=== PATIENT | female | born 1945 | race Caucasian/White ===

== ENCOUNTER 2020-03-18 14:50 | Outpatient (CLI) | payer MEDICARE, SELFPAY ==
--- NOTE | 2020-03-18 15:05 | MR_ITS ---
WS: [id number] MRI LUMBAR SPINE NONCONTRAST TECHNIQUE: Sagittal T1, T2 and STIR imaging. Axial T1 and T2 imaging. CLINICAL INFORMATION: ROUTINE, BACK PAIN OR RADICULOPATHY COMPARISON: MRI November 03, 2013 FINDINGS: Advanced lumbar scoliosis convex left. Scoliotic curvature somewhat limits evaluation. No acute appea ring compression fractures. Disc desiccation worse at L3-L4 and L4-L5. T12-L1: Mild disc bulging with osteophytic ridging. Spinal canal is patent. Mild to moderate right an d no significant left foraminal narrowing. Mild to moderate facet arthropathy. L1-L2: Mild disc bulging and osteophytic ridging. Moderate facet arthropathy. Mild central canal sten osis. Mild right and no significant left foraminal narrowing. L2-L3: Mild disc bulging with osteophytic ridging. Narrowing of the right subarticular recess. Modera te facet arthropathy. Mild right and no significant left foraminal narrowing. L3-L4: Mild disc bulging with narrowing of the right subarticular recess. Mild right and no significa nt left foraminal narrowing. Moderate facet arthropathy. L4-L5: Disc osteophyte complex with endplate ridging. Moderate central canal stenosis with impingemen t subarticular recess bilaterally. Moderate facet arthropathy. Mild bilateral foraminal narrowing. L5-S1: Disc bulging eccentric to the left impingement on the left subarticular recess and traversing left S1 nerve root. Moderate left facet arthropathy. Moderate left and no significant right foraminal narrowing. Visualized pelvic bony structures: Normal. Paravertebral soft tissues: Normal. MR/MR lumbar spine wo con* [id number] IMPRESSION: 1. Advanced lumbar scoliosis convex left. Scoliotic curvature somewhat limits evaluation. 2. Moderate central canal stenosis L4-5 with impingement on the subarticular r ecess bilaterally and traversing L5 nerve roots. 3. Disc osteophyte complex L5-S1 impinges the traversing left S1 nerve root in the subarticular recess. Moderate left foraminal narrowing impinges the exitin g left L5 nerve root with moderate left facet arthropathy. 4. Mild narrowing of the right L3-L4 subarticular recess with mild right ale inal narrowing at this level and mild right L3-4 foraminal narrowing. 5. Overall findings are not significantly changed since 2013.
== END 2020-03-18 14:51 | disposition home or self-care (01) ==
PROVIDERS: Family Provider Family Medicine; PCP Family Medicine; Visit Provider Family Medicine
DX: M54.10 Radiculopathy, site unspecified (principal); M54.9 Dorsalgia, unspecified; M41.86 Other forms of scoliosis, lumbar region; M48.061 Spinal stenosis, lumbar region without neurogenic claudication; M25.78 Osteophyte, vertebrae; M47.817 Spondylosis without myelopathy or radiculopathy, lumbosacral region
CPT/HCPCS: 72148

== ENCOUNTER 2020-07-15 09:21 | Outpatient (CLI) | payer MEDICARE, SELFPAY ==
--- NOTE | 2020-07-15 09:28 | MM_ITS ---
WS: [id number] SCREENING DIGITAL MAMMOGRAM WITH CAD HISTORY: SCREENING COMPARISON: 05/23/2019 and 07/12/2017 Bilateral CC and MLO views submitted. Computer aided detection analyzed. Breast composition: There are scattered areas of fibroglandular density. No suspicious masses, microc alcifications or architectural distortion. Benign calcification anterior LEFT breast. MM/[place] [id number] IMPRESSION: BI-RADS: 2-Benign FOLLOW UP: 1 Year Follow-up
== END 2020-07-15 09:22 | disposition home or self-care (01) ==
LOC: RADSHAW 09:25
PROVIDERS: PCP Family Medicine; Visit Provider Family Medicine
DX: Z12.31 Encounter for screening mammogram for malignant neoplasm of breast (principal)
CPT/HCPCS: 77067

== ENCOUNTER 2021-04-04 09:35 | Outpatient (CLI) | payer MEDICARE, SELFPAY ==
--- NOTE | 2021-04-04 09:52 | XR_ITS ---
WS: [id number] Cervical spine, 3 views, 04/04/2021 day Clinical Data: FALL AT HOME Comparison: None. Findings: No compression fractures are seen. There is disc space narrowing at C3-C4, C4-C5 and C5-C6. There is osteophytic spurring from C3 through C5. There is no prevertebral soft tissue swelling. The odontoid is unremarkable. The soft tissues of the neck and the lung apices are normal. XR/XR cervical spine 3V* [id number] Impression: 1. Degenerative disc narrowing at C3-C4, C4-C5 and C5-C6. 2. 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
== END 2021-04-04 09:36 | disposition home or self-care (01) ==
PROVIDERS: PCP Family Medicine; Visit Provider Family Medicine
DX: M50.31 Other cervical disc degeneration, high cervical region (principal)
CPT/HCPCS: 72040

== ENCOUNTER 2021-09-08 08:18 | Outpatient (CLI) | payer MEDICARE, SELFPAY ==
--- NOTE | 2021-09-08 08:22 | MM_ITS ---
WS: [id number] SCREENING DIGITAL MAMMOGRAM WITH CAD HISTORY: SCREENING COMPARISON: 07/15/2020, 05/23/2019 and 07/12/2017 Bilateral CC and MLO views submitted. Computer aided detection analyzed. Breast composition: There are scattered areas of fibroglandular density. No suspicious masses, microc alcifications or architectural distortion. There is benign calcification 12:00 LEFT breast. MM/[id number] IMPRESSION: BI-RADS: 2-Benign FOLLOW UP: 1 Year Follow-up
== END 2021-09-08 08:19 | disposition home or self-care (01) ==
LOC: RADSHAW 08:19
PROVIDERS: PCP Family Medicine; Visit Provider Family Medicine
DX: Z12.31 Encounter for screening mammogram for malignant neoplasm of breast (principal)
CPT/HCPCS: 77067

== ENCOUNTER 2021-12-03 09:26 | Outpatient (CLI) | payer MEDICARE, SELFPAY ==
--- NOTE | 2021-12-03 09:52 | XR_ITS ---
WS: [id number] DEXA (DUAL ENERGY X-RAY ABSORPTIOMETRY) Bone mineral density was performed using a Cubby machine. HISTORY: ASYMPTOMATIC MENOPAUSAL STATE COMPARISON: None available. Lumbar spine BMD (L1-L4): 1.307 g/cm2 T score: 1.1 Z score: 2.6 Total hip BMD: Left: 0.799 g/cm2. T score: -1.7 Z score: -0.1 Right: 0.812 g/cm2. T score: -1.6 Z score: 0.0 10 year probability of a major osteoporotic fracture is 14%. Severe LEFT curvature lumbar spine. Increased sclerosis along the concave curvature the lumbar spine falsely elevating the bone mineral density. Bone mineral density within the hips is more accurate dep iction. XR/XR DEXA axial skeleton* [id number] IMPRESSION: OSTEOPENIA based upon the WHO classification for females.
== END 2021-12-03 09:27 | disposition home or self-care (01) ==
PROVIDERS: PCP Family Medicine; Visit Provider Family Medicine
DX: Z78.0 Asymptomatic menopausal state (principal)
CPT/HCPCS: 77080

== ENCOUNTER 2022-03-17 08:36 | Outpatient (CLI) | payer MEDICARE, SELFPAY ==
--- NOTE | 2022-03-17 09:02 | XR_ITS ---
WS: [email or web address] Exam: XR chest 2V* [id number] Date/Time of Exam: 03/17/2022 9:03 AM Reason For Exam: COUGH Comparison 10/11/2016. The lungs are fully inflated and clear. Normal cardiomediastinal silhouette. Angular thoracolumbar sc oliosis. No pleural effusions. XR/XR chest 2V* [id number] IMPRESSION: 1. No acute cardiopulmonary finding. Marked thoracolumbar scoliosis.
== END 2022-03-17 08:37 | disposition home or self-care (01) ==
PROVIDERS: PCP Family Medicine; Visit Provider Family Medicine
DX: R05.9 Cough, unspecified (principal)
CPT/HCPCS: 71046

== ENCOUNTER 2022-10-20 08:43 | Outpatient (CLI) | payer MEDICARE, SELFPAY ==
--- NOTE | 2022-10-20 08:49 | MM_ITS ---
WS: [email or web address] VIEWS: MLO and CC views both breasts. 3D digital tomosynthesis is also included in this exam. Comparison made with prior exam of 09/05/2014, 02/19/2016, 07/12/2017, 05/23/2019, 07/15/2020, 09/08/20 21.. Findings: There was no sign of mass, architectural distortion or suspicious calcification in either breast. Sc attered fibroglandular densities MM/[place] [id number] Impression: BI-RADS: 2-Benign FOLLOW-UP: 1 Year Follow-up This mammogram was also analyzed by the Computer Aided Detection System R2 Imag e Quality Control Assessor.
== END 2022-10-20 08:44 | disposition home or self-care (01) ==
LOC: RAD 08:47
PROVIDERS: PCP Family Medicine; Visit Provider Family Medicine
DX: Z12.31 Encounter for screening mammogram for malignant neoplasm of breast (principal)
CPT/HCPCS: 77063; 77067

== ENCOUNTER 2023-04-08 11:46 | Outpatient (CLI) | payer MEDICARE, SELFPAY ==
--- NOTE | 2023-04-08 11:58 | XR_ITS ---
WS: [email or web address] XR scoliosis survey 2-3V [id number] REASON FOR EXAM: SCOLIOSIS FINDINGS: Severe thoracolumbar scoliosis. Severe degenerative spondylosis of the lumbar spine with severe disc space narrowing at L1-S1. Lumbar scoliosis convex left 55 degrees. Moderate degenerative spondylosis in the in the mid and lower thoracic spine. Thoracic scoliosis convex right. 35 degrees. XR/XR scoliosis survey 2-382 IMPRESSION: Severe thoracolumbar scoliosis as above.
== END 2023-04-08 11:47 | disposition home or self-care (01) ==
PROVIDERS: PCP Family Medicine; Visit Provider Family Medicine
DX: M41.9 Scoliosis, unspecified (principal)
CPT/HCPCS: 72082

== ENCOUNTER 2023-06-14 10:39 | Outpatient (CLI) | payer MEDICARE, SELFPAY ==
--- NOTE | 2023-06-14 10:53 | MR_ITS ---
WS: [id number] MRI LUMBAR SPINE NONCONTRAST HISTORY: SCOLIOSIS/SPONDYLOSIS W/O MYELOPATH,THORACIC LUMBAR REGION COMPARISON: 03/18/2020 TECHNIQUE: Sagittal and axial multisequence imaging is submitted. Thoracolumbar scoliosis. Advanced LEFT curvature lumbar spine with asymmetric disc space narrowing. V agusto similar to the prior exam. No marrow edema or fracture. Disc spaces are desiccated throughout. Most significant at L3-4 and L4-5. Conus terminates normally at L1-2 disc level. T12-L1: Marked deformity thecal sac due to the scoliosis. Severe RIGHT foraminal stenosis L1-L2: Diffuse disc bulging with osteophytic ridging. Moderate facet arthritis. Mild central with mod erate RIGHT foraminal stenosis. No LEFT foraminal stenosis. L2-L3: Deformity of the thecal sac due to the scoliosis. Diffuse annular disc bulging with facet arth ritis. Mild central with moderate RIGHT foraminal stenosis. Similar to the prior study. L3-L4: Mild progression of central and bilateral subarticular recess stenosis. Thecal sac is being de formed. Nerve roots extend into the RIGHT foramen and subarticular recess. Moderate central, bilatera l subarticular recess and RIGHT foraminal stenosis. L4-L5: Marked annular disc bulging, osteophytic ridging and facet arthritis. Near effacement of the C SF. There is an additional central disc protrusion. Progression of stenosis and disc disease since th e prior study. Severe central, bilateral subarticular recess and foraminal stenosis. L5-S1: Marked annular disc bulging with a LEFT foraminal disc protrusion. Mild osteophytic ridging wi th severe ligamentum flavum and facet arthritis. Moderate to severe central with severe LEFT subartic ular recess and foraminal stenosis. Only mild stenosis on the RIGHT. Stenoses have progressed since 2 020. Paravertebral soft tissues are negative for IMPRESSION: 1. Marked thoracal lumbar scoliosis. LEFT curvature lumbar spine. 2. Significant progression of degenerative changes and stenoses within L4-5 and L5-S1. Mild progressi on at L3-4. 3. Moderate to severe central with severe LEFT subarticular recess and foraminal stenosis at L5-S1. L EFT foraminal disc protrusion contributes to the stenosis and encroachment upon the LEFT L5 and S1 ne rve roots. 4. Severe central, bilateral subarticular recess and foraminal stenosis at L4-5. 5. Moderate central, bilateral subarticular recess and RIGHT foraminal stenosis at L3-4. Nerve roots in the thecal sac encroach into the RIGHT foramen and RIGHT subarticular recess due to the scoliosis. 6. T12-L1: Severe RIGHT foraminal stenosis. 7. Moderate RIGHT and mild LEFT foraminal stenosis at L1-2. 8. Mild central with moderate RIGHT foraminal stenosis at L2-3.
== END 2023-06-14 10:40 | disposition home or self-care (01) ==
PROVIDERS: PCP Family Medicine; Visit Provider Registered Nurse
DX: M41.85 Other forms of scoliosis, thoracolumbar region (principal); M47.815 Spondylosis without myelopathy or radiculopathy, thoracolumbar region; M48.05 Spinal stenosis, thoracolumbar region; M48.07 Spinal stenosis, lumbosacral region
CPT/HCPCS: 72148

== ENCOUNTER 2023-07-08 16:36 | Outpatient (CLI) | payer MEDICARE, SELFPAY ==
--- NOTE | 2023-07-08 | MRR_ITS ---
PROCEDURE INFORMATION: Exam: MR Cervical Spine Without Contrast Exam date and time: 07/08/2023 5:05 PM Age: 78 years old Clinical indication: Pain; Cervicalgia; Additional info: Hyperreflexia TECHNIQUE: Imaging protocol: Magnetic resonance imaging of the cervical spine without contrast. COMPARISON: CR XR scoliosis survey 2-3V [id number] 04/08/2023 12:04 PM FINDINGS: Bones/joints: No acute fracture. Normal alignment. Moderate multilevel degenerative disc disease throughout the cervical spine. No significant disc bulge or herniation. No severe spinal canal stenosis. There is mild multilevel neural foraminal stenosis within the mid and lower cervical spine, no severe neural foraminal stenosis. Spinal cord: Normal signal. No cord compression. Vasculature: Expected flow voids in the vertebral arteries. Soft tissues: Unremarkable MR/MR cervical spin wo con* [id number] IMPRESSION: Moderate multilevel degenerative disc disease throughout the cervical spine. No significant disc bulge/herniation, spinal canal, or neural foraminal stenosis.
== END 2023-07-08 16:37 | disposition home or self-care (01) ==
PROVIDERS: PCP Family Medicine; Visit Provider Registered Nurse
DX: R29.2 Abnormal reflex (principal); M50.30 Other cervical disc degeneration, unspecified cervical region
CPT/HCPCS: 72141; 72156

== ENCOUNTER 2023-07-09 13:25 | Outpatient (CLI) | payer MEDICARE, SELFPAY ==
--- NOTE | 2023-07-09 | MR_ITS ---
WS: [email or web address] MRI THORACIC SPINE WITHOUT CONTRAST TECHNIQUE: Sagittal T1, T2 and STIR imaging. Axial T2 imaging. Noncontrast imaging obtained. CLINICAL INFORMATION: back pain COMPARISON: None. FINDINGS: Marked thoracolumbar scoliosis. Moderate thoracic kyphosis. No acute compression. No high-grade centr al canal stenosis. Cord signal is normal. Mild disc space narrowing in the lower thoracic spine. Mode rate facet arthropathy lower thoracic spine. Shallow central protrusion in the upper thoracic spine a t T2-3 with slight contact of the thoracic cord and mild central canal stenosis. Tiny shallow central protrusions in the midthoracic spine. Normal caliber thoracic aorta. Small esophageal hiatal hernia. Moderate LEFT bony foraminal narrowing T11-T12 and bilateral T12-L1. IMPRESSION: 1. Marked rectal lumbar scoliosis with moderate thoracic kyphosis. 2. No acute compression fractures. 3. No high-grade central canal stenosis. 4. Shallow central protrusion in the upper thoracic spine at T2-3 with slight contact of the thoraci c cord and mild central canal stenosis.
== END 2023-07-09 13:26 | disposition home or self-care (01) ==
LOC: RAD 13:27
PROVIDERS: PCP Family Medicine; Visit Provider Registered Nurse
DX: M40.204 Unspecified kyphosis, thoracic region (principal); M48.04 Spinal stenosis, thoracic region; M51.24 Other intervertebral disc displacement, thoracic region
CPT/HCPCS: 72146

== ENCOUNTER → 2023-09-08 11:29 | Outpatient (BNVA) | payer MEDICARE, SELFPAY | PROVIDERS: PCP Family Medicine; Visit Provider Internal Medicine Cardiovascular Disease | DX: R07.9 Chest pain, unspecified (principal); R94.31 Abnormal electrocardiogram [ECG] [EKG] | CPT/HCPCS: 93005; 99203 ==

== ENCOUNTER 2023-09-15 06:03 | Outpatient (CLI) | payer MEDICARE, SELFPAY ==
[2023-09-15] VITALS (23 sets, daily range): BP systolic 107–162; BP diastolic 74–95; PULSE 52–71; RESP 13–21; O2SAT 91–97; BMI 28.3
--- NOTE | 2023-09-15 06:00 | XACV_ITS ---
Gender: Female : 1945 Any Known Allergies: Other Exam Priority: Routine Procedure(s): Procedure Description: Diagnostic procedure Procedure Description: Coronary Angiography Procedure Description: Pressure Wire Yair LOUIE; Diagnostic Cath Status: Elective Diagnostic Findings * Patient with previous angiography several years ago without need for intervention. Over the last 2 months recurrent chest pain. Using multiple nitroglycerin. Procedure was accomplished from the right radial artery. * Coronary angiography reveals left coronary artery dominance. The left main coronary artery is normal and bifurcates into the LAD and circumflex. The LAD contains mild diffuse plaquing with a 30 to 40% proximal to mid stenosis. The circumflex is the dominant artery and gives off multiple relatively small marginal branches and a posterior descending artery. In the proximal to mid circumflex there is a 40 to 50% stenosis. The distal vessel contains moderate to diffuse generalized plaquing. There is a small ramus intermedius artery which is severely diffusely diseased in the proximal to midportion. The right coronary artery is a small nondominant vessel and has mild to moderate diffuse disease.. PCI Status: Elective Interventional Findings * And IFR of the proximal to mid circumflex lesion is 0.99. Conclusions 1. Diffuse nonobstructive coronary artery disease. Recommendations * Consider adding a long-acting nitrate. Interventional RX Recommendation: medical therapy and/or counseling Diagnostic RX Recommendation: medical therapy and/or counseling Anticoagulation: Heparin Pressures Phase:Rest AO : 126 / 66 ( 94 ) @ 7:25:00 AM 115 / 73 ( 90 ) @ 7:27:00 AM 131 / 60 ( 93 ) @ 7:32:00 AM 144 / 74 ( 105 ) @ 7:59:00 AM Clinical Evaluation EBL: 5mL-10mL Procedural Details Pre-Procedure Time Out. Identified patient by full name and date of as verbalized by the patient/guarantor. Does the consent match the physician's order: Yes. Accurate & Complete Informed Consent: Yes. Inpatient/Outpatient History & Physical on Chart: Yes. If H&P is completed, is and addenduem needed: No; If yes, is the addendum complete: N/A. Visualize and Verify Site with Patient/Guarantor: N/A. Relevant Radiology Images available: Yes. Pre-op teaching completed and patient verbalized understanding. The risks, benefits, and alternatives of sedation and/or procedure were discussed by physician. The patient agrees to continue. Procedure started. [facility] Clinical Fraility Score: 3: Managing Well. Water/Wastewater Project Manager Indications: Worsening Angina. Chest Pain Symptom Assessment: Atypical Angina. Correct patient, site and procedure confirmed by cath team. Current diagnosis: Chest Pain. PERRLA. Strong, equal hand imaging nurse bilaterally. Lungs clear x 5 lobes. IV Site on Arrival: 20 gauge in the left anticubital. Physician arrived. IV Fluids: 0.9% NaCl at KVO. 0 mL infused prior to laborer fryer farm. Pre Procedural Pulses: right dorsalis pedis was 3+. Pre Procedural Pulses: left dorsalis pedis was Doppled. Pre Procedural Pulses: bilateral posterior tibial was Doppled. Pre Procedural Pulses: bilateral radial was 3+. Oxygen started at 2liters/min via nasal canula. right groin was prepped with chloroprep then draped in the usual sterile fashion. right radial was prepped with chloroprep then draped in the usual sterile fashion. Baseline sample Acquired. HR: 65 BPM. Physician scrubbed in. Immediate Pre-Procedure Time Out. Correct Patient: Yes; Correct Procedure: Yes; Correct Site: Yes; Correct Patient Position: Yes; Correct Supplies: Yes; Dried Flammable Prep: Yes; Blood Products Available: N/A;. Lidocaine 1% infiltrated to the right radial. Arterial access obtained. A 5 tanzanian TIG catheter in over wire. Multiple views taken of left coronary artery. Catheter removed over the exchange wire. A 6 tanzanian TIG catheter in over wire. Catheter out. A 6 tanzanian JL4 catheter in over wire. Multiple views taken of left coronary artery. Catheter removed over the exchange wire. A 6 tanzanian JR4 catheter in over wire. Catheter removed over the exchange wire. A 5 tanzanian TIG catheter in over wire. Multiple views taken of right coronary artery. Physician review of cine films. Catheter removed over the exchange wire. 6 tanzanian XB 3 guide catheter was inserted over the wire. IFR guidewire was advanced through the guide catheter to lesion in the prox Circ. IFR Results: 0.99. Wire out. Guide catheter out. A TR Band was successful obtaining hemostatsis at the Right Radial artery insertion site. Post Procedure: Pulses reassessed and unchanged. PERRLA. Strong, equal hand imaging nurse bilaterally. No VTE prophylaxis required. Medication's Wasted: Heparin = 1000 unit. Medication's Wasted: Nitro = 49.8 mcg. Total IV fluids: 70 mL. Complications: None. Estimated blood loss: 5mL-10mL. Responsiveness - Normal response to verbal stimuli; alert and oriented, PERRLA. Airway - Unaffected, no intervention required; spontaneous ventilation. Circulation: W/N/L, pulses unchanged. Nausea/Vomiting: No. Procedure completed. Vital chart was stopped. Patient transferred by stretcher to CPRU. Access Site Site: Right Radial artery Sheath Size: 6 Fr Hemostasis Method: TR Band Hemostasis Success: Successful Procedure Medications Start: 7:14 AM Stop: 7:14 AM Medication: Versed Amount: 1 mg Route: I.V. Start: 7:14 AM Stop: 7:14 AM Medication: Fentanyl Amount: 50 mcg Route: I.V. Start: 7:23 AM Stop: 7:23 AM Medication: Nitrogylcerin Amount: 200 mcg Route: I.A. Start: 7:25 AM Stop: 7:25 AM Medication: Heparin Amount: 5000 units Route: I.V. Start: 7:26 AM Stop: 7:26 AM Medication: Fentanyl Amount: 25 mcg Route: I.V. Start: 7:40 AM Stop: 7:40 AM Medication: Versed Amount: 1 mg Route: I.V. Start: 7:56 AM Stop: 7:56 AM Medication: Fentanyl Amount: 25 mcg Route: I.V. I, the attending physician, have reviewed and verified all procedure medications. Yes, all medications given per verbal order History/Risk Factors Hypertension: No Dyslipidemia: No Peripheral Arterial Disease (PAD): No Myocardial Infarction (NV): No Obesity: No Renal Disease: No Tobacco Use: Never Prior Interventions PCI: No CABG: No Valve Surgery: No Report Signatures Finalized by Dr. Oliver Mazariegos MD on 09/15/2023 08:31 AM
[2023-09-15] MEDS: diphenhydrAMINE 50 mg Capsule PO (06:20)
[2023-09-15] MEDS: aspirin 325 mg Tablet PO (06:20)
[2023-09-15 06:44] LABS: Basophils # 0.1 10^3/uL (0.0-0.1); Basophils % 1.3 %; Eosinophils # 0.5 10^3/uL (0.0-0.8); Eosinophils % 6.1 %; Hematocrit 39.1 % (36-47); Lymphocytes # 1.2 10^3/uL (0.8-4.8); Lymphocytes % 14.5 %; Mean Corpuscular Hemoglobin 29.7 pg (27-33); Mean Corpuscular Volume 92.9 fl (85-98); Mean Platelet Volume 10.5 fL (7.4-10.4); Monocytes # 0.8 10^3/uL (0.2-0.9); Monocytes % 9.1 %; Neutrophils # 5.83 10^3/uL (1.8-7.7); Neutrophils % 68.6 %; Nucleated Red Blood Cells % 0 %; Platelet Count 288 10^3/cmm (157-399); Red Blood Count 4.21 10^6/uL (3.85-5.65); White Blood Count 8.49 10^3/uL (3.29-11.43)
--- NOTE | 2023-09-15 06:54 | P.HPUD_ITS ---
Surgery/Procedure H&P Update DATE OF PROCEDURE: September 15, 2023 DATE H&P PERFORMED: 09/08/23 H&P UPDATE INFORMATION: I have reviewed H&P completed within last 30 days, I have examined patient prior to procedure, No changes to prior documentation and H&P is in [facility] [place] on date indicated CHANGES TO PREVIOUS DOCUMENTATION: none PRIMARY INDICATION FOR PROCEDURE: chest pain PLANNED PROCEDURE: Operation Date: 09/15/23 07:00 Proposed Procedures p Left heart cath [id number],R94.39(Not Applicable) - Oliver Mazariegos MD
[2023-09-15 06:58] LABS: Anion Gap 15.9 (5-19); Blood Urea Nitrogen 21 mg/dL (8-23); Calcium 9.8 mg/dL (8.5-10.5); Carbon Dioxide 26 mmol/L (22-29); Chloride 103 mmol/L (98-107); Creatinine Clr Calc Pharmacy 49.9717; Glucose 86 mg/dL (65-115); Osmolality Calculated 294 mOsm/kg (285-295); Potassium 3.9 mmol/L (3.5-5.1); Sodium 141 mmol/L (136-145)
--- NOTE | 2023-09-15 10:10 | PC.NURSE ---
TR Band Bleeding noted from TR band small hematoma noted below band. 4ml air placed back into band, hemostasis achieved. Small hematoma expressed.
--- NOTE | 2023-09-15 10:16 | PM.DCS ---
Discharge Providers Date of Admission: September 15, 2023 Date of Discharge: September 15, 2023 Attending Provider at Admission: Yair Attending Provider at Discharge: Oliver Mazariegos MD Primary Care Provider: Yamel Swift MD Diagnoses at Discharge Discharge Diagnosis (1) Chest pain: Status: Acute (2) CAD (coronary artery disease): Status: Acute Reason for Visit Reason for Visit: r94.39 Brief History: John fernandez 78 has a history of nonobstructive coronary artery disease with 2 previous angiograms in 2014 and 2016. She presented to the office a week ago with 2 months of chest pain. Intermittent relief with nitroglycerin. She is concerned about her previous 30% lesion which may have advanced. She was recommended for angiography. Hospital Course Hospital Course She has a left dominant system. She has a severely diffusely diseased small ramus intermedius artery. The circumflex has developed a 50% stenosis in the proximal portion. This underwent IFR evaluation. The IFR reading was 0.99. She has mild to moderate diffuse disease in all coronary arteries. There is a 30 to 40% mid left anterior descending lesion. The right coronary artery is a diminutive nondominant artery. The distal circumflex has moderate diffuse disease. The procedure was done from the right radial artery. There were no complications. At the time of discharge there is no bleeding, hematoma or other vascular anomalies. Imdur was added to her medication regimen in case she is having spasm. Physical Exam Narrative: GENERAL: In general she looks and feels well HEENT: Exam within normal limits. NECK: Supple without jugular vein distention. The carotid upstroke is normal without bruits. BACK: Exam normal. LUNGS: Clear. HEART: Regular rate and rhythm. ABDOMEN: Benign without organomegaly or tenderness. EXTREMITIES: No edema. At the time of discharge the right radial artery area is flat, dry without hematoma or bleeding. There is a good pulse. NEUROLOGIC: Exam normal. SKIN: Unremarkable. Discharge Data Studies Completed and Pending Completed Studies During Hospitalization Category Date Time Status [employer] I ASSEMBLER request for service Routine Exams 09/15/23 06:00 Completed Laboratory Results WBC 8.49 10^3/uL (3.29-11.43) 09/15/23 06:27 RBC 4.21 10^6/uL (3.85-5.65) 09/15/23 06:27 Hgb 12.50 g/dL (11.27-16.99) 09/15/23 06:27 Hct 39.1 % (36-47) 09/15/23 06:27 MCV 92.9 fl (85-98) 09/15/23 06:27 MCH 29.7 pg (27-33) 09/15/23 06:27 MCHC 32.0 g/dL (30-55) 09/15/23 06:27 RDW 13.0 % (12.1-15.1) 09/15/23 06:27 Plt Count 288 10^3/cmm (157-399) 09/15/23 06:27 MPV 10.5 fL (7.4-10.4) H 09/15/23 06:27 Neut % (Auto) 68.6 % 09/15/23 06:27 Lymph % (Auto) 14.5 % 09/15/23 06:27 Travis % (Auto) 9.1 % 09/15/23 06:27 Eos % (Auto) 6.1 % 09/15/23 06:27 Baso % (Auto) 1.3 % 09/15/23 06:27 Neut # (Auto) 5.83 10^3/uL (1.8-7.7) 09/15/23 06:27 Lymph # (Auto) 1.2 10^3/uL (0.8-4.8) 09/15/23 06:27 Travis # (Auto) 0.8 10^3/uL (0.2-0.9) 09/15/23 06:27 Eos # (Auto) 0.5 10^3/uL (0.0-0.8) 09/15/23 06:27 Baso # (Auto) 0.1 10^3/uL (0.0-0.1) 09/15/23 06:27 Nucleated RBC % (auto) 0 % 09/15/23 06:27 Nucleated RBCs # 0.0 /100WBC 09/15/23 06:27 Sodium 141 mmol/L (136-145) 09/15/23 06:27 Potassium 3.9 mmol/L (3.5-5.1) 09/15/23 06:27 Chloride 103 mmol/L (98-107) 09/15/23 06:27 Carbon Dioxide 26 mmol/L (22-29) 09/15/23 06:27 Anion Gap 15.9 (5-19) 09/15/23 06:27 BUN 21 mg/dL (8-23) 09/15/23 06:27 Creatinine 0.9 mg/dL (0.5-0.9) 09/15/23 06:27 GFR Calculation Not Reportable 09/15/23 06:27 Glucose 86 mg/dL (65-115) 09/15/23 06:27 Calculated Osmolality 294 mOsm/kg (285-295) 09/15/23 06:27 Calcium 9.8 mg/dL (8.5-10.5) 09/15/23 06:27 Procedures Performed Coronary angiography. IFR of the circumflex 0.99. Vitals Last Vital Signs Pulse 58 L 09/15/23 10:00 Resp 16 09/15/23 10:00 BP 124/78 09/15/23 10:00 Pulse Ox 93 09/15/23 10:00 O2 Del Method Room Air 09/15/23 09:45 Discharge Plan Discharge Patient Disposition: Home Prescriptions: New isosorbide mononitrate 30 mg tablet extended release 24 hr 30 mg PO DAILY Qty: 30 6RF Continued citalopram 20 mg tablet 20 mg PO DAILY levothyroxine 100 mcg capsule 100 mcg PO DAILY meloxicam 15 mg tablet 15 mg PO DAILY amlodipine [Norvasc] 5 mg tablet 5 mg PO BID budesonide-formoterol [Symbicort] 80-4.5 mcg/actuation HFA aerosol inhaler 2 puff inhalation BID albuterol 90 mcg/actuation aerosol 90 mcg inhalation pantoprazole 40 mg tablet,delayed release (DR/EC) 40 mg PO BID Discharge Orders: Discharge Order (Routine); Ordered 09/15/23 Ordered By: Oliver Mazariegos Referrals: Amy Campbell FNP [Nurse Practitioner] - 7-10 days (Check right radial artery and chemistry panel) Diet: Cardiac Activity: Increase activity as tolerated and Limit activity as instructed Activity Restrictions/Additional Instructions: No lifting over 5 pounds with the right arm for 2 days Discharge Attestations Time Spent in Discharge Care*: greater than 30 min Quality Metrics Clinical Quality Measures [ No reported AMI, CVA or VTE this stay] Coding Level of Care Code 42578 Total time (in minutes) for Discharge: 35 Diagnoses Chest pain R07.9 CAD (coronary artery disease) I25.10
== END 2023-09-15 06:04 | disposition home or self-care (01) ==
PROVIDERS: PCP Family Medicine; Visit Provider Internal Medicine Cardiovascular Disease
DX: I25.10 Atherosclerotic heart disease of native coronary artery without angina pectoris (principal); R07.9 Chest pain, unspecified
CPT/HCPCS: 36415; 80048; 85025; 93571; 96361; 96365; 99152; 99153; C1769; C1887; C1894; J1644; J2250; J3010; J3490; J7030; Q0163; Q9967

== ENCOUNTER → 2023-09-22 08:04 | Outpatient (BNVA) | payer MEDICARE, SELFPAY | PROVIDERS: PCP Family Medicine; Visit Provider Nurse Practitioner Family | DX: I25.118 Atherosclerotic heart disease of native coronary artery with other forms of angina pectoris (principal) | CPT/HCPCS: 36415; 80048; 99214 ==

== ENCOUNTER → 2023-11-12 09:38 | Outpatient (BNVA) | payer MEDICARE, SELFPAY | PROVIDERS: PCP Family Medicine; Visit Provider Internal Medicine Cardiovascular Disease | DX: I25.118 Atherosclerotic heart disease of native coronary artery with other forms of angina pectoris (principal) | CPT/HCPCS: 99213 ==

== ENCOUNTER 2024-03-23 18:48 | Emergency (ER) | payer MEDICARE, SELFPAY ==
[2024-03-23 18:52] VITALS: BP 132/80; PULSE 73; RESP 16; TEMP 36.9; O2SAT 95; BMI 29.2
--- NOTE | 2024-03-23 18:56 | XRR_ITS ---
PROCEDURE INFORMATION: Exam: XR Right Hip Exam date and time: 03/23/2024 7:13 PM Age: 79 years old Clinical indication: Injury or trauma; Fall; Other: Pain; Additional info: Fall pain TECHNIQUE: Imaging protocol: Radiologic exam of the right hip. Views: 1 view hip with pelvis when performed. COMPARISON: MR lumbar spine wo con* [id number] 06/14/2023 11:45 AM FINDINGS: Bones/joints: Slight degenerative acetabular spurring. No acute fracture. No dislocation. Soft tissues: A few nonspecific heterotopic ossifications noted near the greater trochanter. XR/XR hip RT 2-3V wo/w pel* [id number] IMPRESSION: No hip fracture or dislocation. Further evaluation with MR may be considered if there is persistent suspicion for occult fracture or other significant abnormality.
[2024-03-23] MEDS: cyclobenzaprine 10 mg Tablet 5 MG PO (19:41)
[2024-03-23] MEDS: ondansetron 4 MG Tablet PO (19:41)
--- NOTE | 2024-03-23 19:41 | ED_ITS ---
HPI - Extremity Problem General: Chief complaint: Extremity Problem,Nontraumatic Stated complaint: afraid broke right hip cant put weight Time Seen by Provider: 03/23/24 19:14 History of Present Illness: 79-year-old female with a history of hyp ertension who presents emergency room w ith right-sided leg pain. She describes pain that starts in her back and goes all the way down the back of her leg. She says she has a hard time walking and moving because of the pain. No saddle numbness, no urinary retention or incontinence, no focal motor deficit, no sensory deficit. no recent fever. no cough. no shortness of breath. no chest pain. no abdominal pain. no nausea or vomiting. no dysuria. no altered mental status. no edema. Review of Systems Narrative: Constitutional symptoms: Negative except as documented in HPI. Skin symptoms: Negative except as documented in HPI. Eye symptoms: Negative except as documented in HPI. ENMT symptoms: Negative except as documented in HPI. Respiratory symptoms: Negative except as documented in HPI. Cardiovascular symptoms: Negative except as documented in HPI. Gastrointestinal symptoms: Negative except as documented in HPI. Genitourinary symptoms: Negative except as documented in HPI. Musculoskeletal symptoms: Negative except as documented in HPI. Neurologic symptoms: Negative except as documented in HPI. Psychiatric symptoms: Negative except as documented in HPI. Endocrine symptoms: Negative except as documented in HPI. [facility] ED PFSH: Medical History CAD (coronary artery disease) Stable angina Chest pain Family History Other Cancer Social History Smoking and tobacco/nicotine status: never used tobacco/nicotine Physical Exam Narrative: EXAM NARRATIVE: General: Alert, no acute distress. Head: Normocephalic Neck: Trachea midline Eye: Extraocular movements are intact. Ears, nose, mouth and throat: Oral mucosa moist Respiratory: Respirations are non-labored Musculoskeletal: Normal ROM Back: no step off, no focal tenderness Neurological: Alert and oriented to person, place, time, and situation, No focal neurological deficit observed. Psychiatric: Cooperative, appropriate mood & affect. Course Vital Signs: Vital signs: Vital Signs Temperature 98.5 F 03/23/24 18:52 Pulse Rate 73 03/23/24 18:52 Respiratory Rate 16 03/23/24 18:52 Blood Pressure 132/80 03/23/24 18:52 Pulse Oximetry 95 03/23/24 18:52 MDM - Extremity (Nontraumatic) Medical Decision Making X-ray of the right hip and pelvis: No fractures. No dislocations. Perhaps some arthritic changes. This was reviewed and interpreted by myself the emergency room physician. Assessment and plan: Sciatica -[place] with Zofran. Patient states she has an allergy to [place] but this is nausea so Zofran given with. ? 5 mg Flexeril. 10 mg IM Decadron. - Discharged home - Discussed plan with patient. Answered any questions. - Evaluation and treatment of this problem were appropriate in the emergency setting. XR interpretation done by ED provider, pending radiology final review Discharge Plan Discharge Patient Disposition: Home Clinical Impression: Sciatica Qualifiers: Laterality: right Qualified Code(s): M54.31 - Sciatica, right side Condition: Stable Prescriptions: New cyclobenzaprine 10 mg tablet 10 mg PO BEDTIME Qty: 20 0RF hydrocodone-acetaminophen 5-325 mg tablet 1 tab PO Q6H PRN (Reason: pain) Qty: 20 0RF prednisone 20 mg tablet 60 mg PO DAILY Qty: 20 0RF Rx Instructions: 3 tabs (60 mg) x 3 days. 2 tabs (40 mg) x 3 days. 1 tab (20 mg) x 3 days. 1/2 tab (10 mg) x 4 days ondansetron 8 mg tablet,disintegrating 8 mg PO .q6 PRN (Reason: nausea and vomiting) Qty: 14 0RF diclofenac sodium 50 mg tablet,delayed release (DR/EC) 50 mg PO Q12H Qty: 20 0RF Miralax 17 gram/dose powder 17 g PO DAILY Qty: 510 0RF Rx Instructions: Take 1 scoop daily while taking pain medications. No Action levothyroxine 100 mcg capsule 100 mcg PO DAILY meloxicam 15 mg tablet 15 mg PO DAILY amlodipine [Norvasc] 5 mg tablet 5 mg PO BID budesonide-formoterol [Symbicort] 80-4.5 mcg/actuation HFA aerosol inhaler 2 puff inhalation BID albuterol 90 mcg/actuation aerosol 90 mcg inhalation pantoprazole 40 mg tablet,delayed release (DR/EC) 40 mg PO BID citalopram 20 mg tablet 10 mg PO DAILY gabapentin 100 mg capsule 200 mg PO QDAY doxycycline hyclate 100 mg tablet 100 mg PO BID 7 Days Qty: 14 0RF isosorbide mononitrate 30 mg tablet extended release 24 hr 30 mg PO BID Qty: 180 3RF Discharge Orders: Discharge ED (Routine); Ordered 03/23/24 Ordered By: Radha Dickerson Referrals: Yamel Swift MD [Primary Care Provider] - Discharge Diet: Advance as tolerated Discharge Activity: Increase activity as tolerated Patient Instructions: Sciatica (ED), Opioid Safety Activity Restrictions/Additional Instructions: Thank you for choosing [facility] for your healthcare needs today. Please realize this is an emergency room and that we are providing you with a medical screening exam and this may not be complete and all inclusive of all the testing and or work up that you may need to determine your ailment or severity of your illness. You have been screened and evaluated and felt safe for discharge. Health conditions do change or evolve sometimes and as such it is important that you follow up with your Primary Doctor to be re checked, 3-5 days is a general good time frame for follow up. You are always welcome to return to the ED for re assessment if your symptoms are worsening or you have new concerns Coding Level of Care Code ED [facility] Underwriter for Jamin Menjivar
[2024-03-23] MEDS: HYDROcodone-acetaminophen 5-325 mg Tablet 1 TAB PO (19:42)
[2024-03-23] MEDS: dexamethasone 10 mg/mL INJ IM (19:42)
[2024-03-23 19:53] VITALS: BP 135/76; PULSE 70; RESP 16; O2SAT 92
[2024-03-23 20:23] VITALS: BP 132/81; PULSE 71; O2SAT 90
== END 2024-03-23 20:25 | disposition home or self-care (01) ==
PROVIDERS: Emergency Provider Emergency Medicine; PCP Family Medicine
DX: M54.31 Sciatica, right side (principal); I25.10 Atherosclerotic heart disease of native coronary artery without angina pectoris
CPT/HCPCS: 73502; 96372; 99284; J1100; Q0162

== ENCOUNTER 2024-05-12 09:57 | Outpatient (RCR) | payer MEDICARE, SELFPAY | END 2024-05-27 23:59 | disposition home or self-care (01) | LOC: SPT 09:57 | PROVIDERS: PCP Family Medicine; Visit Provider Family Medicine | DX: M54.30 Sciatica, unspecified side (principal); M41.9 Scoliosis, unspecified; M48.00 Spinal stenosis, site unspecified; G89.29 Other chronic pain | CPT/HCPCS: 97162 ==

== ENCOUNTER → 2024-08-04 09:39 | Outpatient (BNVA) | payer MEDICARE, SELFPAY | PROVIDERS: PCP Family Medicine; Visit Provider Nurse Practitioner Family | DX: I25.118 Atherosclerotic heart disease of native coronary artery with other forms of angina pectoris (principal); I87.2 Venous insufficiency (chronic) (peripheral) | CPT/HCPCS: 99214 ==

== ENCOUNTER → 2024-10-10 10:00 | Outpatient (BNVA) | payer MEDICARE, SELFPAY | PROVIDERS: PCP Family Medicine; Referring Provider Family Medicine; Visit Provider Anesthesiology Pain Medicine | DX: M54.9 Dorsalgia, unspecified (principal) | CPT/HCPCS: 99204 ==

== ENCOUNTER → 2025-01-09 16:06 | Outpatient (BNVA) | payer MEDICARE, SELFPAY | PROVIDERS: PCP Family Medicine; Visit Provider Internal Medicine Cardiovascular Disease | DX: I25.10 Atherosclerotic heart disease of native coronary artery without angina pectoris (principal); I87.2 Venous insufficiency (chronic) (peripheral); I10 Essential (primary) hypertension; G62.9 Polyneuropathy, unspecified; N39.498 Other specified urinary incontinence; M48.00 Spinal stenosis, site unspecified; M54.30 Sciatica, unspecified side; M41.9 Scoliosis, unspecified | CPT/HCPCS: 99214 ==

== ENCOUNTER 2025-02-28 14:13 | Outpatient (CLI) | payer MEDICARE, SELFPAY ==
--- NOTE | 2025-02-28 14:30 | USCV_ITS ---
Manju Salazar Age: 80 Gender: F : 1945 Exam Date: 02/28/2025 14:39 Ordering Phys: Akhil Lehman MD ([email or web address]) Technologist: R [place]am [place] [facility] [place]: bilateral leg swelling HISTORY: Lower extremity swelling. PROCEDURES: Venous duplex imaging was performed in bilateral lower extremities. The following venous structures were evaluated: common femoral vein, profunda vein, proximal portion of the greater saphenous vein, superficial femoral vein, and the popliteal vein. In addition, the posterior tibial and peroneal trunk were evaluated. FINDINGS: No evidence of DVT seen in any vessel visualized at this time. CONCLUSIONS No evidence of right lower extremity DVT. No evidence of left lower extremity DVT. Casey Mcfarlane MD (Electronically Signed) Final Date: 28 February 2025 15:22 S
== END 2025-02-28 14:14 | disposition home or self-care (01) ==
LOC: RAD 14:14
PROVIDERS: PCP Internal Medicine; Visit Provider Internal Medicine Cardiovascular Disease
DX: I87.2 Venous insufficiency (chronic) (peripheral) (principal)
CPT/HCPCS: 93970

== ENCOUNTER 2025-05-17 09:15 | Outpatient (CLI) | payer MEDICARE, SELFPAY ==
--- NOTE | 2025-05-17 09:30 | USCV_ITS ---
Manju Salazar Age: 80 Gender: F : 1945 Exam Date: 05/17/2025 09:32 Ordering Phys: Akhil Lehman MD ([email or web address]) Technologist: BM [place] [facility] [place]: HISTORY: PROCEDURES: FINDINGS: The veins were found to be easily compressible with spontaneous blood flow. Non pulsatile flow pattern. CONCLUSIONS No evidence of DVT in the above-mentioned identifiable veins. Dr Dayna Marcial MD [facility] (Electronically Signed) Final Date: 19 May 2025 10:41 S
== END 2025-05-17 09:16 | disposition home or self-care (01) ==
LOC: RAD 09:16
PROVIDERS: PCP Internal Medicine; Visit Provider Internal Medicine Cardiovascular Disease
DX: I87.2 Venous insufficiency (chronic) (peripheral) (principal)
CPT/HCPCS: 93970

== ENCOUNTER → 2025-05-25 10:36 | Outpatient (BNVA) | payer MEDICARE, SELFPAY | PROVIDERS: PCP Internal Medicine; Visit Provider Dermatology | DX: D22.4 Melanocytic nevi of scalp and neck (principal); L82.1 Other seborrheic keratosis; L81.4 Other melanin hyperpigmentation; D48.5 Neoplasm of uncertain behavior of skin | CPT/HCPCS: 11102; 99203 ==

== ENCOUNTER → 2025-07-11 14:01 | Outpatient (BNVA) | payer MEDICARE, SELFPAY | PROVIDERS: PCP Internal Medicine; Visit Provider Internal Medicine Cardiovascular Disease | DX: I25.10 Atherosclerotic heart disease of native coronary artery without angina pectoris (principal); I87.2 Venous insufficiency (chronic) (peripheral); M54.30 Sciatica, unspecified side; M48.00 Spinal stenosis, site unspecified | CPT/HCPCS: 99214 ==